=== PATIENT | female | born 1960 ===

== ENCOUNTER 2017-01-18 11:55 | Emergency (ER) | payer MEDICAID ==
[~2017-01-18 11:55] MED LIST: ADVIL200 MG PO; ALBUTEROL17 GM INH; ALEVE220 M1 PO; CIPRO500 MG PO; CYPROHEPTADINE H4 M1 PO; IBUPROFEN200 M2 PO; IBUPROFEN400 M1 PO; NO HOME MEDS; NORCO 5-325 TA1 EACH PO; NORCO 5/3251 TAB PO; OMEGA 31 CAP PO; OMEPRAZOLE20 M3 PO; VITAMIN D1000 UNI2 PO; ZOFRAN ODT4 MG/UDTAB PO; ZOLOFT50 M1 PO
[2017-01-18] MEDS ORDERED: PERCOCET 5-3251 EACH PO (12:09)
[2017-01-18] MEDS ORDERED: VITAMIN D31000 UNI3 PO (12:10)
[2017-01-18] MEDS ORDERED: CYCLOBENZAPRINE10 M1 PO (12:10)
[2017-01-18 12:34] LABS: BASO % 0.1 % (0-2); EOS % 0.4 % (0-7); EOSINOPHIL ABSOLUTE COUNT 0.1 tho/cmm (0.0-0.7); HCT-HEMATOCRIT 44.1 % (34.0-49.0); HGB-HEMOGLOBIN 15.1 gm/dl (12.0-15.5); IMMATURE GRANULOCYTES ABSOLUTE 0.04 tho/cmm (0-0.03); IMMATURE GRANULOCYTES PERCENT 0.3 % (0-0.3); LYMPH % 6.4 % (20-45); LYMPH ABSOLUTE COUNT 0.9 tho/cmm (0.8-4.5); MCH (MEAN CORPUSCULAR HGB) 31.6 pg (28.0-32.0); MCHC MEAN CORPUSCULAR HGB CONC 34.2 % (32.0-36.0); MCV (MEAN CELL VOLUME) 92.3 fl (82.0-96.0); MONO % 4.9 % (0-12); MONOCYTE ABSOLUTE COUNT 0.7 tho/cmm (0.0-1.2); NEUTROPHIL ABSOLUTE COUNT 11.9 tho/cmm (1.6-8.0); NEUTROPHIL-AUTOMATED 11.9 tho/cmm (1.6-8.0); NEUTROPHILS % 87.9 % (40-80); PLATELET COUNT 311 tho/cmm (150-450); RED BLOOD COUNT 4.78 mil/cmm (4.00-5.20); RED CELL DISTRIBUTION WIDTH 13.7 % (12.4-16.4); WHITE BLOOD COUNT 13.6 tho/cmm (4.0-10.0)
[2017-01-18] MEDS ORDERED: LIPITOR80 M1 PO (12:38)
[2017-01-18 12:54] LABS: URINE BILIRUBIN MODERATE (NEG); URINE BLOOD MODERATE (NEG); URINE GLUCOSE (UA) NEGATIVE (NEG); URINE KETONE MODERATE (NEG); URINE LEUKOCYTE ESTERASE POSITIVE (NEG); URINE NITRITE POSITIVE (NEG); URINE PROTEIN MODERATE (NEG); URINE SPECIFIC GRAVITY 1.025 (1.003-1.030)
[2017-01-18 12:57] LABS: URINE APPEARANCE CLEAR; URINE COLOR ORANGE
[2017-01-18 13:02] LABS: URINE EPITHELIAL CELLS 15-20 /[HPF] (0-10); URINE MUCUS 3+; URINE WBC 0-3 /[HPF] (0-5)
[2017-01-18 13:05] LABS: ALB/GLOB RATIO 0.8 (0.8-2.0); ALBUMIN 3.9 g/dl (3.5-5.0); ALKALINE PHOSPHATASE 154 U/L (33-138); ALT/SGPT 75 U/L (12-78); BILIRUBIN,TOTAL 2.2 mg/dl (0-1.5); BLOOD UREA NITROGEN 12 mg/dl (6-24); CALCIUM 9.3 mg/dl (8.5-10.5); CARBON DIOXIDE-VENOUS 25 mmol/L (22-32); CHLORIDE 107 mmol/l (96-110); CREATININE 1.04 mg/dl (0.50-1.10); GLUCOSE 184 mg/dL (70-110); LIPASE 88 U/L (73-393); SODIUM 141 mmol/L (135-145); eGFR VALUE FOR BLACK 70 mL/Min
[2017-01-18 13:06] LABS: ANION GAP 13 mmol/L (0-20); AST/SGOT 182 U/L (10-40); POTASSIUM 4.1 mmol/L (3.7-5.1)
[2017-01-18] MEDS ORDERED: ZOFRAN ODT4 MG PO (14:07)
[2017-02-05] MEDS ORDERED: ULTRAM50 M1 PO (09:40)
== END 2017-01-18 14:36 ==
LOC: EDMED 11:55
PROVIDERS: Emergency Medicine
DX: R11.2 Nausea with vomiting, unspecified (principal); R10.84 Generalized abdominal pain; T40.2X5A Adverse effect of other opioids, initial encounter
CPT/HCPCS: J2405; J7030; Q9967

== ENCOUNTER 2017-02-06 10:32 | Day surgery (SDC) | payer MEDICAID ==
[~2017-02-06 10:32] MED LIST changes: +CYCLOBENZAPRINE10 M1 PO; +LIPITOR80 M1 PO; +PERCOCET 5-3251 EACH PO; +ULTRAM50 M1 PO; +VITAMIN D31000 UNI3 PO; +ZOFRAN ODT4 MG PO
--- NOTE | 2017-02-06 21:04 | NUR ---
VIRTUAL CARE NOTE: ASSESSEMENT DEFERRED. ATTEMPTED TO ROUND X2. PT SLEEPING. WILL CONTINUE WITH CHART REVIEW.
== END 2017-02-07 16:50 ==
LOC: SRG 10:32 → SHSA 10:33 → PACU 15:03 → 5WD 16:45
PROC: 0WQF4ZZ Repair Abdominal Wall, Percutaneous Endoscopic Approach (ICD-10-PCS; principal; 2017-02-06)
DX: K43.9 Ventral hernia without obstruction or gangrene (principal); K66.0 Peritoneal adhesions (postprocedural) (postinfection); E78.00 Pure hypercholesterolemia, unspecified; E66.01 Morbid (severe) obesity due to excess calories; F41.9 Anxiety disorder, unspecified; Z68.29 Body mass index [BMI] 29.0-29.9, adult; F32.9 Major depressive disorder, single episode, unspecified; G89.29 Other chronic pain; Z98.890 Other specified postprocedural states; Z90.710 Acquired absence of both cervix and uterus; Z79.899 Other long term (current) drug therapy; Z88.0 Allergy status to penicillin; Z88.6 Allergy status to analgesic agent
CPT/HCPCS: C1781; J1956; J2270; J3010